=== PATIENT | female | born 1940 | race Caucasian/White ===

== ENCOUNTER → 2024-01-31 06:39 | Outpatient (REF) | payer MEDICARE, SELFPAY | LOC: PAVMRI 06:39 | PROVIDERS: ATTENDING PHYSICIAN Internal Medicine; REFERRING PHYSICIAN Specialist | DX: R45.86 Emotional lability (principal) | CPT/HCPCS: 70551 ==

== ENCOUNTER → 2024-11-13 08:54 | Outpatient (REF) | payer MEDICARE, SELFPAY | LOC: RCS 08:54 | PROVIDERS: ATTENDING PHYSICIAN Internal Medicine Cardiovascular Disease; FAMILY PHYSICIAN Internal Medicine | DX: R06.09 Other forms of dyspnea (principal) | CPT/HCPCS: 93306 ==

== ENCOUNTER 2025-04-22 16:27 | Inpatient (IN) | payer MEDICARE, SELFPAY ==
[2025-04-22] VITALS (14 sets, daily range): BP systolic 108–157; BP diastolic 52–124; PULSE 2; BMI 52.6
--- NOTE | 2025-04-22 12:12 | EDRN ---
the pt was brought back from triage to ED Bed #11, the pts p02 was 65, this RN notified Dr. Olson and placed the pt on 6L NC, Sp02 came up to 96%
[2025-04-22 12:22] LABS: Hematocrit 46.9 % (37.0-47.0); Hemoglobin 13.9 g/dL (12.0-16.0); Mean Corp Hgb Conc. 29.6 g/dL (33.0-37.0); Mean Corpuscular Volume 96.7 fL (81.0-99.0); Nucleated Red Blood Cells % 0.3 %; Platelet Count 219 10^3/uL (130-400); Red Cell Dist. Width 14.7 % (11.5-14.5)
[2025-04-22 12:45] LABS: ALT (SGPT) 31 U/L (0-35); AST (SGOT) 37 U/L (14-36); Albumin 3.7 g/dl (3.5-5.0); Alkaline Phosphatase 131 U/L (38-126); Blood Urea Nitrogen 17 mg/dl (7-17); Calcium 8.5 mg/dl (8.4-10.2); Carbon Dioxide 38 mmol/L (22-30); Chloride 102 mmol/L (98-107); Estimated Creatinine Clearance 75 ml/min; Glucose 117 mg/dl (70-99); Magnesium 2.1 mg/dl (1.6-2.3); Potassium 4.4 mmol/L (3.5-5.1); Sodium 142 mmol/L (135-145); Total Protein 6.5 g/dl (6.3-8.2); eGFR > 60.00
[2025-04-22 12:46] LABS: COVID-19 Antigen Negative (Negative)
--- NOTE | 2025-04-22 12:47 | ED.GENMED ---
History of Present Illness
General
Chief Complaint: Breathing Problem
Source: patient
Exam Limitations: none
Time Seen by Provider: 04/22/25 12:14
Nursing documentation reviewed up to this point in time: agreed with
History of Present Illness
History of Present Illness:
The patient is an 85-year-old female with a past medical history of dementia and COPD who was brought in by vehicle by her daughter after her daughter reports that she has been more confused and sleepy, as well as short of breath for about 2 to 3
days. Patient's daughter reports she has had acute cognitive decline over the last 48 hours. She reports her mother lives alone and barely gets up and walks around. She denies any increased cough or fever. She reports she lives right across the
street from her mother and checks up on her frequently. The patient arrives somnolent and lethargic and does not offer history.
Past History
Past History
ED Past Medical History: COPD, GERD, Hypercholesterolemia, Valvular disease, Other (Peripheral Vascular disease), Other (Vertigo, Adrenal Adenoma) and Other (Diverticulosis, sleep apnea uses CPAP)
ED Past Surgical History: Cardiac, Cholecystectomy and Gynecological (Hysterectomy)
Social History
Tobacco: Former smoker (50 pack year history)
Alcohol: None
Drug: None
Personal: Single
Living: alone
Employment: Other
Family History
Family History: Other (dementia)
Review of Systems
Review of Systems
Allergies reviewed?: Yes
All Other Systems: Not applicable (Patient is noninteractive and extremely somnolent)
Constitutional: Reports fatigue
EENT: Reports no symptoms
Respiratory: Reports trouble breathing
Phy Exam
Physical Exam
Physical Exam:
General patient appears extremely somnolent. Eyes are shut. Awakens to sternal rub and then closes eyes but is breathing spontaneously on her own
HEENT: PERRL
Cardiovascular is regular rate and rhythm
Lungs: decreased breath sounds bilaterally. Tachypnea
Abdomen soft, obese, patchy yeastlike rash under both breasts bilaterally, and bilateral groin areas. Additionally, there is streaking erythema on abdominal wall ? Cellulitis
Neuro; nonfocal, very sleepy, occasionally opens eyes and seems alert but then falls back to sleep
Rash: Thickened, erythematous skin bilateral lower legs that looks indicative of chronic vascular disease, foul-smelling yeast looking rash under both breasts bilaterally and bilateral inguinal areas
Scores
Heart Failure Risk
Heart Failure Risk Score: Not Applicable
Course
Orders/Labs/Results
Orders:
Orders
04/22/25 12:09
Electrocardiogram (*1) Urgent
Reason for Study: Shortness of Breath
04/22/25 12:10
EKG- Treatment ONCE
04/22/25 12:11
Complete Blood Count/With Diff Urgent
Comprehensive Metabolic Panel Urgent
Magnesium Urgent
NT-proBNP Urgent
Troponin I Urgent
04/22/25 12:16
COVID-19 Antigen Urgent
Source: Nasal Swab
Influenza A+B Rapid Molecular Urgent
MARY Source: Nasal Swab
Specimen Description:
04/22/25 12:58
CT Head W/o Iv Contrast Urgent
Comment:
Reason For Exam: change MS
04/22/25 12:59
CR Chest Portable - 1 View Urgent
Comment:
Reason For Exam: SOB
Reason Study Needs to be Portable: Patient Unstable
04/22/25 13:16
Bipap [RESP] Urgent
Patient to use own unit?: No
Inspiratory Pressure (cm H2O): 12
Expiratory Pressure (cm H2O): 5
04/22/25 13:38
Venous Blood Gas Urgent
%Oxygen/Room Air: 6 L Nasal
04/22/25 13:56
Furosemide [Lasix] 40 mg IV NOW STA
04/22/25 14:02
Segundo Placement- Treatment ONCE
Reason for insertion: I&O's Critical Care
Catheter- Indwelling As Directed
Reason for insertion: I&O's Critical Care
Size: 16
Type: Indwelling
Assess insertion reason daily.Remove if no longer applicable: Yes
04/22/25 14:11
Lactic Acid Urgent
Urinalysis Reflex To Culture Urgent
Date Specimen was Collected: 04/22/25
Time Specimen was Collected: 14:09
Urine Microscopic Reflex Cult Urgent
Blood Culture Urgent
MARY Source: Blood/Venous
Specimen Description:
Urine Culture Urgent
MARY Source: U
Specimen Description:
Date Specimen was Collected: 04/22/25
Time Specimen was Collected: 14:09
04/22/25 14:13
Vancomycin [Vancocin] 2,000 mg 0.9% Sodium Chloride 500 ml [Nss] 500 ml IV NOW
04/22/25 14:21
Nystatin Ointment [Mycostatin Ointment] See Dose Instructions TOPICAL NOW STA
04/22/25 14:38
Blood Culture Urgent
MARY Source: Blood/Venous
Specimen Description:
04/22/25 14:40
diazePAM [Valium Injection] 2 mg IV NOW STA
Abnormal Lab Results
04/22/25 04/22/25 04/22/25
12:11 13:38 14:11
MCHC 29.6 L g/dL
(33.0-37.0)
RDW 14.7 H %
(11.5-14.5)
Absolute Neuts (auto) 6.9 H 10^3/uL
(1.4-6.5)
Absolute Monos (auto) 0.7 H 10^3/uL
(0.1-0.6)
Lymphocytes % 16.4 L %
(20.5-51.1)
VBG pH 7.19 L*
(7.32-7.43)
VBG pCO2 104 H* mmHg
(35-48)
VBG pO2 86 H mmHg
(30-50)
VBG HCO3 39.7 H mmol/L
(22-27)
Carbon Dioxide 38 H mmol/L
(22-30)
Glucose 117 H mg/dl
(70-99)
Lactic Acid 0.6 L mmol/L
(0.7-2.0)
AST 37 H U/L
(14-36)
Alkaline Phosphatase 131 H U/L
(38-126)
Ur Occult Blood Reflex 2+ A
(Negative)
Urine Nitrite (Reflex) Positive A
(Negative)
Urine Bilirubin 1+ A
(Negative)
Leukocyte Esterase Rfl 3+ A
(Negative)
Urine RBC 3-6 A /HPF
(0-2)
Urine WBC (Reflex) 16-20 A /HPF
(0-5)
Urine Bacteria (Reflex) Many A
(Negative)
Urine Albumin (Reflex) 2+ A
(Neg - Trace)
04/22/25 12:11
04/22/25 12:11
Vital Signs
Initial and Last Documented VS:
Initial Vital Signs
Temp BP Pulse Ox
98.2 F 108/86 61
04/22/25 11:59 04/22/25 11:59 04/22/25 11:59
Last Documented Vital Signs
Temp Pulse Resp BP Pulse Ox
98.6 F 85 16 157/120 97
04/22/25 12:21 04/22/25 14:18 04/22/25 12:21 04/22/25 14:18 04/22/25 12:47
MDM/Problems Addressed
Differential Diagnosis Includes:
CHF, COPD exacerbation, pneumonia, UTI, cellulitis, hypercapnia
MDM/Problems Addressed:
Patient presents with acute lethargy and shortness of breath
Chronic conditions affecting care: COPD
Acute Exacerbation and/or Progression of Chronic Illness:
Patient likely has acute on chronic COPD exacerbation given her shortness of breath and high CO2 levels
*Radiology
Radiology exam reviewed: preliminary read by ED provider (Chest x-ray read by me. Pulmonary edema) and radiology read reviewed
*Pulse Oximetry
SaO2: 97
Nasal Cannula flow liters per minute: 6
Oxygen Mode of Delivery: Room air
Patient hypoxic: yes
Comment: Patient was 61% on room air
*EKG
Interpreted by ED Provider?: Yes
Comparison EKG: no comparison EKG present
Rate: normal
Rhythm: PVC's and sinus arrhythmia
Dexter: left axis deviation
Interval: normal interval
QRS Pattern: right bundle branch block
Ischemia: non-specific ST changes
*Retail Wireless Sales Representative Interpretation
Rate: normal
Interpretation: normal
Rhythm: sinus
*Critical Care Note
Total Time (30-74mins, 75-104mins- exclusive of procedures): Not Applicable (48 minutes)
comment:
48 minutes critical care given to patient including frequent reassessments of her respiratory effort, mental status, reviewing her chest x-ray, blood work, EKG as well as speaking to the hospitalist and the family
Data Reviewed
Review of Other/Old Records Reveals: Testing (Cardiac echo 2022 shows EF of 55 to 60%)
Source: patient
Patient Management
Social determinants of health affecting care: Living situation (Lives alone and has dementia) and Strong social support
Escalation/DeEscalation of care consider admission/obs:
Patient arrives with acute respiratory failure. I talked to her daughter about possible intubation if needed. For now her daughter would like her to be DNR and DNI. Her daughter would like to try BiPAP as long as possible before choosing to
intubate. She reports her mother would not want resuscitation.
Patient presents in some degree of CHF. For this, patient will be diuresed. BiPAP will also help with this
I feel the majority of patient's mental status changes due to her being hypercapnic. The hope is that her mental status will improve as BiPAP continues. If not, we will reassess the need for intubation, however, as stated, her daughter reports
that she would rather have her be DNR and DNI
Patient's skin findings are concerning for candidiasis as well as abdominal wall cellulitis
ED Attending Note
-
Portions of this chart may have been created with voice recognition software.� Occasional wrong word or��sound alike� substitutions may have occurred due to the inherent limitations of voice recognition software.
Discharge Plan
Departure
Patient Disposition: Admit
Date of Disposition: 04/22/25
Time of Disposition: 14:41
Presentation/result/management discussed w/ accepting MD/DO: Hospitalist
Patient with high blood pressure during this ER visit?: Yes
Condition: Fair
Discharge Problem:
Acute hypoxemic respiratory failure, Acute metabolic encephalopathy, Abdominal wall cellulitis, Acute CHF
Prescriptions:
No Action
meclizine 12.5 MG tablet
12.5 mg PO TID
Patient Comments:
05/15/16 pt unsure of dose
atorvastatin 20 mg tablet
20 mg PO DAILY
sulfasalazine 500 mg tablet
500 mg PO TID
amlodipine 5 mg Tablet
5 mg PO DAILY
levothyroxine 125 mcg Tablet
125 mcg PO DAILY
lansoprazole 30 mg Capsule,Delayed Release(Dr/Ec)
30 mg PO DAILY PRN (Reason: Gastrointestinal issue)
gabapentin 100 mg Capsule
100 mg PO BID
torsemide 10 mg Tablet
10 mg PO DAILY
paroxetine HCl 12.5 mg Tablet Extended Release 24 Hr
12.5 mg PO DAILY
Referrals:
Avel Castrejon DO [Family Provider, Internal Medicine]
Interventions
Interventions:
*Risk Screen - Suicide Last Done: 04/22/25 11:59
*General Assessment Last Done: 04/22/25 11:59
*Neglect/Abuse Screening Last Done: 04/22/25 11:59
*ED- Fall Risk Assessment Last Done: 04/22/25 12:21
*ED COVID-19 Vaccine History Last Done: 04/22/25 12:21
ED- Cardiac Assessment Last Done: 04/22/25 12:21
ED- Pulmonary Assessment Last Done: 04/22/25 12:21
Discharge Date and Time
Print Language: CROATIAN
[2025-04-22 12:48] LABS: Troponin I 0.028 ng/ml
--- NOTE | 2025-04-22 13:00 | EDRN ---
per Dr. Olson the pt is to be placed on Bipap, this RN reached out to respiratory
--- NOTE | 2025-04-22 13:12 | EDRN ---
respiratory currently at the pts bedside placing the pt on Bipap
--- NOTE | 2025-04-22 13:17 | EDRN ---
the pt was placed on Bipap 12/5 6L Sp02 96%, the pt is becoming more lethargic
--- NOTE | 2025-04-22 13:46 | EDRN ---
VBG drawn and sent
--- NOTE | 2025-04-22 13:47 | EDRN ---
the pts p02 dipped to 88%, this RN notified respiratory and this RN titrated the pt up to 12/5 10L, Sp02 now 96%
[2025-04-22 13:48] LABS: Venous Blood Gas B.E. 7.3 mmol/L (-4 to +4); Venous Blood Gas O2 Sat % 96.3 %
[2025-04-22] MEDS: LASIX 40 MG IV (14:18)
[2025-04-22 14:36] LABS: Urine Character Cloudy (Clear)
[2025-04-22] MEDS: VANCOCIN 540 MG IV (14:40)
[2025-04-22] MEDS: MYCOSTATIN OINTMENT 1 APPLIC TOPICAL (14:40)
[2025-04-22 14:41] LABS: Urine White Cell 16-20 /HPF (0-5)
--- NOTE | 2025-04-22 15:05 | HPS.HSE ---
Addendum entered and electronically signed by CATRINA Blair 04/22/25 16:47:
Patient repeat VBG worsened despite interventions, reviewed with family (son and daughter present) who elected comfort care measures only and to withdraw aggressive interventions. Orders placed for Comfort Care.
Original Note:
Family Physician
-
Family Physician: Avel Castrejon
Chief Complaint
-
increased shortness of breath, increased confusion and generalized weakness
History of Present Illness
Patient is a 85-year-old female with past medical history significant for hypertension, hypercholesterolemia, dementia, GERD, COPD, CAD, IBS and anxiety/depression who presented to [facility] ED for evaluation of increased shortness of breath (at rest),
increased confusion and generalized weakness. Patient is nonresponsive at assessment with this provider. Daughter at bedside who assisted with HPI. She reports that patient lives alone and she visits frequently. She has noticed increased shortness
of breath and increased confusion for a little while, most prevalent in the last 24-48 hours. In the last 24-48 hours patient has had increased generalized weakness as well and has been unable to ambulate without a assistive device, this she
normally does not need. Daughter reported some form of hallucinations yesterday evening, she called daughter requesting her help in getting grandchildren down stairs so she can order them pizza, but they were not listening to her. Noting that
grandchildren are in there 20-30s and have not slept over in years. She was able to redirect her. When visiting today she got patient up for a shower and following shower she noticed a significant increased lethargy and decided she need to bring
patient for evaluation so assisted her to car and drive her to ED. Daughter denies any recent illness, travel, fever, chills, cough, chest pain, nausea, vomiting, diarrhea or urinary symptoms that she is aware of.
Medical History
Past Medical History
Past Medical History: Reports GERD, HTN, Hypercholesterolemia and Other
Additional Past Medical History:
hypertension
hypercholesterolemia
dementia
GERD
COPD
CAD
IBS
Anxiety/depression
LOREN
Past Surgical History: Reports Other
Additional Past Surgical History:
Hysterectomy
cholecystectomy
right wrist repair
Social History
Tobacco: Non-smoker
Alcohol: Occasional
Drug: None
Living: Alone
Family History
Family History: Other (Mother: Alzheimer's Disease, CAD; Father: pancreatic cancer)
Allergies / Home Medications
Allergies reflects when Allergies were last updated in [facility].
Home Medications with original date entered in [employer]
Allergy/Medication List:
Allergies
Allergy/AdvReac Type Severity Reaction Status Date / Time
No Known Allergies Allergy Verified 04/22/25 11:58
Home Medications
meclizine 12.5 mg tablet 12.5 mg PO TID 05/15/16
amlodipine 5 mg tablet 5 mg PO DAILY Blood pressure 07/23/22
atorvastatin 20 mg tablet 20 mg PO DAILY High cholesterol 07/23/22
gabapentin 100 mg capsule 100 mg PO BID Neurological Condition 07/23/22
lansoprazole 30 mg capsule,delayed release 30 mg PO DAILY PRN Gastrointestinal issue 07/23/22
levothyroxine 125 mcg tablet 125 mcg PO DAILY Thyroid 07/23/22
sulfasalazine 500 mg tablet 500 mg PO TID Gastrointestinal issue 07/23/22
paroxetine HCl 12.5 mg tablet,extended release 24 hr 12.5 mg PO DAILY 04/22/25
torsemide 10 mg tablet 10 mg PO DAILY 04/22/25
Review of Systems
-
Unable to obtain full review of systems at this time due to: Dementia
History Source: Family
Constitutional: Reports Fatigue; Denies Fever or Chills
Respiratory: Reports Trouble Breathing (dyspnea at rest ); Denies Cough or Hemoptysis
Cardiac: Denies Chest Pain, Diaphoresis, Palpitations or Syncope
Abdomen/GI: Denies Abdominal Pain, Nausea, Vomiting or Diarrhea
: Denies Dysuria, Frequency or Urgency
Musculoskeletal: Denies Muscle Pain
Skin: Reports Rash (diffuse body rash)
Neurological: Denies Dizzy, Headache, Weakness or Numbness
Physical Exam
Vital Signs
Vital Signs
Temp Pulse Resp BP Pulse Ox
98.6 F 85 16 157/120 97
04/22/25 12:21 04/22/25 14:18 04/22/25 12:21 04/22/25 14:18 04/22/25 12:47
Physical Exam
General: Well Developed, Well Nourished and Obese
HEENT: NormoCephalic, Moist mucous membranes, Atraumatic, Nose Appears Normal and Ears Appear Normal
Respiratory: Decreased Breath Sounds (bilaterally ) and Other (tachypnea )
Cardiac: Irregular Rhythm, Tachycardia and Peripheral Edema (+2 pitting BLLE ); No Murmur, Rub or Gallop
Breast: Deferred by me
GI: Soft, Non Tender, Non Distended and Normal Bowel Sounds; No Organomegaly
Rectal: Deferred by Provider
Genito-urinary: Segundo
Musculoskeletal: No Clubbing and No Cyanosis
Skin: Warm and IV/Catheter Site
Neuro: Nonfocal/grossly intact and Sedated
Laboratory Results
-
04/22/25 12:11
04/22/25 12:11
Laboratory Results
pH Cancelled 04/22/25 13:00
pCO2 Cancelled 04/22/25 13:00
pO2 Cancelled 04/22/25 13:00
HCO3 Cancelled 04/22/25 13:00
Lactic Acid 0.6 mmol/L (0.7-2.0) L 04/22/25 14:11
Total Bilirubin 1.2 mg/dl (0.2-1.3) 04/22/25 12:11
AST 37 U/L (14-36) H 04/22/25 12:11
ALT 31 U/L (0-35) 04/22/25 12:11
Alkaline Phosphatase 131 U/L (38-126) H 04/22/25 12:11
Troponin I 0.028 ng/ml 04/22/25 12:11
Data Reviewed
-
Diagnostic Radiology: Report Reviewed by me (CXR: Prominence of the pulmonary vascular markings, most suggestive of interstitial pulmonary edema. No focal consolidation, pleural effusion, or pneumothorax. Stable cardiomediastinal silhouette.
Chronic degenerative changes of the spine)
Lab Data: Labs Reviewed by me
Impression/Plan
-
IMPRESSION/PLAN:
#acute hypoxic and hypercapnic respiratory failure
#TME
EKG: SINUS RHYTHM WITH FREQUENT PREMATURE VENTRICULAR COMPLEXES AND PREMATURE
ATRIAL COMPLEXES
LEFT ANTERIOR FASCICULAR BLOCK
RIGHT BUNDLE BRANCH BLOCK
BIFASCICULAR BLOCK
CXR: Prominence of the pulmonary vascular markings, most suggestive of interstitial pulmonary edema.
No focal consolidation, pleural effusion, or pneumothorax.
Stable cardiomediastinal silhouette.
Chronic degenerative changes of the spine
Head CT: No acute intracranial abnormality.
Covid: negative
Influenza: negative
Blood Cx: pending
VBG pH 7.19
pCO2 104
pO2 86
HCO3 39.7
O2 Sat 96.3
- Admit to IMU
- repeat VBG now
- NPO
- BiPap 06/29 and required Valium to tolerate mask
- DNR/DNI
- GOC discussed family unsure of wishes, will revisit GOC following repeat VBG. If worsening will consider comfort measures, if stable will continue with BiPap and monitor
#HFpEF exacerbation
- IV lasix 40mg BID
- hold torsemide while being IV diuresed
- monitor I & Os
- daily weights
#Abdominal Wall Cellulitis
-s/p IV Vanc, continue IV Cefazolin
#hypertension
- continue amlodipine
#hypercholesterolemia
- continue atorvastatin
#GERD
- continue lansoprazole
#IBS
- continue sulfasalazine
#Anxiety/depression
- continue paroxetine
#LOREN
noncompliant with BiPap at home
#COPD
#CAD
#dementia
Code status: DNR/DNI
DVT prophylaxis: heparin sq
--- NOTE | 2025-04-22 15:08 | EDRN ---
the pt went into rapid Afib in the 130-140's then quickly converted to NSR in the 80's, ED provider Dr. Olson notified, pts sp02 is now 91%, respiratory notified
--- NOTE | 2025-04-22 15:15 | EDRN ---
respiratory titrated the pt up to 15L, Sp02 now 95%, Valium was administered due to increased agitation, the pt was attempting to pull off Bipap, the pt was attempting to climb out of bed, per Dr. Olson 2mg Valium IV administered
[2025-04-22] MEDS: VALIUM INJECTION 2 MG IV ×2 (15:19→18:08)
--- NOTE | 2025-04-22 15:21 | W.PN.UPDATE ---
Update Note
Progress Note Update
This is an addendum to H&P written by GLUE LINE OPERATOR Daniela Alvarez
I saw and examined the patient.
The GLUE LINE OPERATOR's note was reviewed and I agree with the note.
Comment:
Ms. Sarai Cook is a 85 yo woman with hx dementia, essential HTN, HLD, hypothyroidism, LOREN on BiPAP qhs, COPD, Crohn's disease, morbid obesity presents to the ER with confusion and fatigue as well as shortness of breath. She is found to
be in hypoxic and hypercarbic respiratory failure.
Triage VS: T 98.6, BP 108/86, SpO2 61% RA up to 97%
On exam patient is somnolent, not arousable to sternal rub, on BiPAP; lungs with decreased breath sounds, + LE swelling
LABS: WBC 6.3, HG 13.9, PLT 219, Na 142, K+ 4.4, Cl 102, CO2 38, Cr 0.7, Glucose 117, Lactate 0.6, Mag 2.1, t. Bili 1.2, AST 37, ALT 31, Alk Phos 131, BNP 733
VB.19/104/86
EKG: NSR @ 89 with PVC's, bifasicular block
HEAD CT
IMPRESSION:
No acute intracranial abnormality.
CXR
FINDINGS/IMPRESSION:
Prominence of the pulmonary vascular markings, most suggestive of interstitial pulmonary edema.
No focal consolidation, pleural effusion, or pneumothorax.
Stable cardiomediastinal silhouette.
MAR: IV Valium, IV Lasix, Nystatin and IV Vancomycin
Hypoxic and Hypercarbic Respiratory Failure
TME 2/2 Above
-VBG with pH 7.19, pCO2 104
-placed on BiPAP in ER 06/29; patient required Valium to tolerate BiPAP
-she is lethargic, repeat VBG now
-patient is DNR/DNI, family is sure of her wishes. We discussed that if repeat gas appears worse, then we know that she is in the process of dying and comfort care is recommended. They would like family to come before we withdraw any support. If
gas is stable/mildly improved OK to continue BiPAP with plan as below as patient appears comfortable.
Heart Failure Preserved EF, Acute Exacerbation
-TTE 11/13/24 with EF 62%; mild MR, mild , trace TR
-s/p Lasix 40mg IV x 1, continue Lasix IV BID
Abdominal Wall Cellulitis
-s/p IV Vanc, continue IV Cefazolin
Chron's Disease
-INFORMATION ASSISTANT Sulfasalazine
Hypothyroidism
-INFORMATION ASSISTANT Synthroid
Essential HTN
Hyperlipidemia
patient is NPO
DNR/DNI
-remainder of plan per GLUE LINE OPERATOR note
Total Critical Care Time 65 minutes. I was immediately available to the patient and staff. I personally examined, reviewed labs, diagnostic images/reports, interpretations, treatment plans, discussed patient care with other providers and family
or caregivers (if patient is unable to make decisions), entered orders as appropriate and documented the medical record.
[2025-04-22 16:11] LABS: Venous Blood Gas B.E. 2.4 mmol/L (-4 to +4); Venous Blood Gas O2 Sat % 98.9 %
--- NOTE | 2025-04-22 16:28 | EDRN ---
Daniela Doss SUPERVISOR COMPONENT ASSEMBLER currently at the [facility] bedside
--- NOTE | 2025-04-22 17:07 | EDRN ---
this RN called the kitchen for a comfort cart for the family, this RN also reached out to Valencia the cellophane press operator for the pts last rights per the pts family's wishes, per the pts family and Daniela Doss VASCULAR SURGEON who spoke to the pts family the pt will
be made comfort care and is a DNR
[2025-04-22] MEDS: MORPHINE SULFATE 1 MG IV (18:08)
--- NOTE | 2025-04-22 18:08 | EDRN ---
Bipap removed by respiratory, per Daniela Doss's orders, this RN administered end of life medications, 2L NC placed on the pt for comfort, family surrounding the pt
[2025-04-22] MEDS: MORPHINE SULFATE 2 MG IV ×2 (18:25→19:58)
--- NOTE | 2025-04-22 19:08 | EDRN ---
bedside shift report completed with Linda MERCEDES. pt appears to be comfortable at this time, respirations unlabored. family at bedside, updated regarding transfer to floor for comfort care - pt verbalizes understanding of transfer. pending bed
assignment
[2025-04-22] MEDS: MORPHINE 100 IV (21:52)
[2025-04-23] MEDS: MORPHINE SULFATE 2 MG IV (00:48)
--- NOTE | 2025-04-23 05:08 | W.PN.DEATH ---
Pronouncement of
-
Called to see patient to pronounce.
No spontaneous heart tones or respirations noted.
Patient not responsive to verbal stimuli.
Patient is pronounced .
Time of : 04:50
Date of : 04/23/25
Cause of : acute hypoxic and hypercapnic respiratory failure, Acute Exacerbation heart failure, Abdominal Wall Cellulitis
Family Notified: Yes (Daughter at bedside)
[2025-04-23 07:15] VITALS: BP 132/76
--- NOTE | 2025-04-23 15:41 | W.DCSUMMARY ---
Discharge Summary
Discharge Data
Date of Admission: 04/22/25
Date of Discharge: 04/23/25
-
Pending Results: No
Hospital Course
Time of : 04:50
Date of : 04/23/25
Cause of : acute hypoxic and hypercapnic respiratory failure
Hospital Course :
Ms. Sarai Cook is a 85 yo woman with hx dementia, essential HTN, HLD, hypothyroidism, LOREN on BiPAP qhs, COPD, Crohn's disease, morbid obesity presents to the ER with confusion and fatigue as well as shortness of breath. She was found to
be in hypoxic and hypercarbic respiratory failure with SpO2 61% RA on admission, VBG pH 7.19, pCO2 104. Patient was placed on BiPAP. CXR with evidence of heart failure. Patient became more somnolent and repeat VBG on BiPAP showed worsening
respiratory acidosis. Family was clear that patient's wishes were for DNR/DNI. She was transitioned to comfort care and peacefully early the next morning. Family notified at bedside.
Important imaging findings :
Procedure findings :
Discharge Plan
-
Patient Disposition:
Date/Time
Date/Time: 04/23/25 04:50
Discharge Date and Time
Discharge Date/Time: 04/23/25 04:50
Print Language: INDIAN
== END 2025-04-23 04:50 | disposition expired | DRG 291 ==
LOC: 2 NORTH 16:27
PROVIDERS: ADMITTING PHYSICIAN Student in an Organized Health Care Education/Training Program; EMERGENCY PHYSICIAN Emergency Medicine; FAMILY PHYSICIAN Internal Medicine
PROC: 5A09357 Assistance with Respiratory Ventilation, Less than 24 Consecutive Hours, Continuous Positive Airway Pressure (ICD-10-PCS; 2025-04-22)
DX: I11.0 Hypertensive heart disease with heart failure (principal); G93.41 Metabolic encephalopathy; J96.01 Acute respiratory failure with hypoxia; I50.33 Acute on chronic diastolic (congestive) heart failure; J96.02 Acute respiratory failure with hypercapnia; E87.29 Other acidosis; F03.93 Unspecified dementia, unspecified severity, with mood disturbance; F03.94 Unspecified dementia, unspecified severity, with anxiety; Z66 Do not resuscitate; Z51.5 Encounter for palliative care; L03.311 Cellulitis of abdominal wall; Z68.43 Body mass index [BMI] 50.0-59.9, adult; E78.00 Pure hypercholesterolemia, unspecified; E66.01 Morbid (severe) obesity due to excess calories; E03.9 Hypothyroidism, unspecified; F32.A Depression, unspecified; G47.33 Obstructive sleep apnea (adult) (pediatric); I25.10 Atherosclerotic heart disease of native coronary artery without angina pectoris; I45.10 Unspecified right bundle-branch block; K58.9 Irritable bowel syndrome, unspecified; J44.9 Chronic obstructive pulmonary disease, unspecified; I73.9 Peripheral vascular disease, unspecified; K21.9 Gastro-esophageal reflux disease without esophagitis; Z79.890 Hormone replacement therapy; Z79.899 Other long term (current) drug therapy; Z11.52 Encounter for screening for COVID-19; Z82.49 Family history of ischemic heart disease and other diseases of the circulatory system; Z87.891 Personal history of nicotine dependence
CPT/HCPCS: 70450; 71045; 80053; 81003; 81015; 82805; 83605; 83735; 83880; 84484; 85025; 87040; 87077; 87086; 87186; 87502; 87811; 93005; 94660; 96365; 96366; 96375; 96376; 99291